=== PATIENT | female | born 1955 | race Two or more races ===

== ENCOUNTER 2023-12-24 14:00 | Inpatient (IN) | payer MEDICARE ==
[~2023-12-24] VITALS: Ht 157.5 cm; Wt 49.4 kg
[2023-12-24] VITALS (26 sets, daily range): BP systolic 74–147; BP diastolic 45–122; TEMP 95.8; O2SAT 93–100
[2023-12-24] MEDS: IV NS 0.9% 1,000 ML BAG IV ONE (14:24)
[2023-12-24 14:28] LABS: BASOPHILS # (AUTO) 0.1 K/uL (0.0-0.2); BASOPHILS % (AUTO) 0.5 % (0.0-2.0); EOSINOPHILS # (AUTO) 0.2 K/uL (0.0-0.7); EOSINOPHILS % (AUTO) 0.9 % (0.0-6.0); HEMATOCRIT 43 % (33-45); HEMOGLOBIN 12.4 g/dL (11.5-14.8); LYMPHOCYTES # (AUTO) 0.6 K/uL (0.8-4.8); LYMPHOCYTES % (AUTO) 2.4 % (20.0-44.0); MEAN CORPUSCULAR HEMOGLOBIN 30 PG (26.0-33.0); MEAN CORPUSCULAR HGB CONC 29 g/dl (31.0-36.0); MEAN CORPUSCULAR VOLUME 106 fL (82-100); MONOCYTES # (AUTO) 1.3 K/uL (0.1-1.30); MONOCYTES % (AUTO) 5.2 % (2.0-12.0); NEUTROPHILS # (AUTO) 22.3 K/uL (1.8-8.9); PLATELET COUNT (AUTO) 298 K/uL (150-450); RED BLOOD CELL COUNT(AUTO) 4.07 MIL/uL (4.0-5.2); RED CELL DISTRIBUTION WIDTH 15.9 % (11.5-15.0); WHITE BLOOD COUNT (AUTO) 24.5 K/uL (4.3-11.0)
[2023-12-24 14:31] LABS: ABG BASE EXCESS -28.4 mmol/L; ABG OXYGEN SATURATION 98.1 % (92.0-98.5); ABG PCO2 11.1 mmHg (35.0-45.0); ABG PH 6.935 (7.350-7.450); ABG PO2 157.5 mmHg (75.0-100.0); ABG TOTAL HEMOGLOBIN 13.6 G/dL (12.0-16.0); COHb 0.3 % (0.5-1.5); MetHb 0.2 % (0.0-1.5); O2Hb 97.6 % (94.0-97.0); SITE, ABG Left Radial
[2023-12-24 14:41] LABS: ALANINE AMINOTRANSFERASE 18 U/L (12-78); ALBUMIN 2.1 g/dL (3.4-5.0); ALKALINE PHOSPHATASE 172 U/L (46-116); ASPARTATE AMINOTRANSFERASE 18 U/L (15-37); BILIRUBIN,DIRECT 0.1 mg/dL (0.0-0.2); BILIRUBIN,TOTAL 0.5 mg/dL (0.2-1.0); CHLORIDE 90 mmol/L (98-107); CREATININE 1.4 mg/dL (0.6-1.3); POTASSIUM 4.5 mmol/L (3.5-5.1); SODIUM SERUM 125 mmol/L (136-145); TOTAL PROTEIN, SERUM 6.9 g/dL (6.4-8.2); UREA NITROGEN, BLOOD 55 mg/dL (7-18)
[2023-12-24 14:43] LABS: INR 0.98 (0.91-1.10); PARTIAL THROMBOPLASTIN TIME 33.9 SEC (24.3-34.3); PROTHROMBIN TIME 10.1 SECS (9.2-11.1)
[2023-12-24] MEDS ORDERED: INSULIN REGULAR, HUMAN 100 UNIT/ML 10 ML VIAL ONE (14:46)
[2023-12-24] MEDS ORDERED: SODIUM BICARBONATE SYR 50 MEQ/50 ML DISP.SYRIN ONE (14:48)
[2023-12-24] MEDS: Sodium Bicarbonate 50 MEQ in IV NS 0.9% 1,000 ML IV PRN (14:52)
[2023-12-24 14:53] LABS: LACTIC ACID 2.1 mmol/L (0.4-2.0)
[2023-12-24] MEDS: INSULIN REGULAR, HUMAN 100 UNIT/ML 10 ML VIAL IV ONE (14:53)
[2023-12-24 14:54] LABS: CARBON DIOXIDE 6 mmol/L (21-32); GLUCOSE 935 mg/dL (74-106)
[2023-12-24 15:13] LABS: MAGNESIUM 2.5 mg/dL (1.8-2.4); PHOSPHORUS 5.7 mg/dL (2.5-4.9)
[2023-12-24] MEDS: INSULIN REGULAR, HUMAN 100 UNITS in IV NS 0.9% 100 ML IV PRN (15:15)
[2023-12-24 15:27] LABS: APPEARANCE,URINE Cloudy (CLEAR); BILIRUBIN,URINE Negative (NEGATIVE); BLOOD, URINE Moderate Ery/uL (NEGATIVE); COLOR,URINE Other (YELLOW); KETONES,URINE 80 mg/dL (NEGATIVE); LEUKOCYTE ESTERASE ,URINE Trace (NEGATIVE); NITRITE, URINE Negative (NEGATIVE); PROTEIN,URINE 100 mg/dl (NEGATIVE); UGLUCOSE 500 MG/DL mg/dL (NEGATIVE); UROBILINOGEN,URINE 0.2 EU/dL (0.2)
[2023-12-24] MEDS ORDERED: Z GUARD REMEDY 4 OZ OINT TP PRN (15:30)
[2023-12-24] MEDS ORDERED: IV NS 0.9% 1,000 ML IV PRN (15:30)
[2023-12-24 15:50] LABS: RBC,URINE 21-50 /HPF (0-2); SQUAMOUS EPITHELIAL CELL,UR Moderate /HPF (None Seen)
[2023-12-24 15:51] LABS: ADD URINE CULTURE YES; BACTERIA,URINE Rare /HPF (None Seen); YEAST,URINE Moderate /HPF (None Seen)
[2023-12-24] MEDS ORDERED: IV PREMIX NS +20MEQ KCL 1 L IV PRN (16:00)
[2023-12-24] MEDS ORDERED: LORAZEPAM INJ 2 MG/ML VIAL ONE (16:54)
[2023-12-24] MEDS ORDERED: CEFTRIAXONE 1GM BAG (ER ONLY) 50 ML IV ONE (16:54)
[2023-12-24 16:57] LABS: MAGNESIUM 2.3 mg/dL (1.8-2.4); PHOSPHORUS 4.8 mg/dL (2.5-4.9)
[2023-12-24] MEDS: LORAZEPAM INJ 2 MG/ML VIAL IV ONE (17:10)
[2023-12-24] MEDS: CEFTRIAXONE 1GM BAG (ER ONLY) 1 GM/50 ML PIGGYBACK IV ONE (17:10)
[2023-12-24 18:51] LABS: PHOSPHORUS 4.6 mg/dL (2.5-4.9)
[2023-12-24] MEDS: BLOOD SUGAR DIAGNOSTIC 1 EACH STRIP IN SCH (19:10)
[2023-12-24] MEDS: INSULIN REGULAR, HUMAN 100 UNIT in IV NS 0.9% 99 ML IV PRN (19:17)
[2023-12-24] MEDS: Sodium Bicarbonate 150 MEQ in IV D5W 1,000 ML IV SCH (19:31)
[2023-12-24] MEDS: ENOXAPARIN SODIUM 30 MG/0.3 ML DISP.SYRIN SQ SCH (19:48)
[2023-12-24 20:36] LABS: CALCIUM, SERUM 9.3 mg/dL (8.5-10.1); CREATININE 1.4 mg/dL (0.6-1.3); POTASSIUM 3.1 mmol/L (3.5-5.1)
[2023-12-24] MEDS: POTASSIUM CL. PREMIX PERIPHER. 50 ML IV SCH (21:22)
[2023-12-24] MEDS: IV 1/2NS 1000 ML 1,000 ML IV SCH (21:50)
[2023-12-24 22:06] LABS: ANISOCYTOSIS 1+; BAND % (MANUAL) 9 % (0.0-5.0); LYMPHOCYTES % (MANUAL) 3 % (16-48); MONOCYTES % (MANUAL) 4 % (0-11.0); NEUTROPHILS % (MANUAL) 84 (42-76); PLATELET ESTIMATE ADEQUATE
[2023-12-24] MEDS ORDERED: FLUCONAZOLE IN NS 100 ML IV ONE (22:26)
[2023-12-24] MEDS: FLUCONAZOLE IN NS 100 MG in PREMIX 1 EA IV SCH (22:32)
[2023-12-24 22:57] LABS: ABG BASE EXCESS -14.1 mmol/L; ABG OXYGEN SATURATION 98.7 % (92.0-98.5); ABG PCO2 18.4 mmHg (35.0-45.0); ABG PH 7.332 (7.350-7.450); ABG PO2 151.9 mmHg (75.0-100.0); ABG TOTAL HEMOGLOBIN 12.4 G/dL (12.0-16.0); COHb 0.2 % (0.5-1.5); MetHb 0.3 % (0.0-1.5); O2Hb 98.2 % (94.0-97.0); SITE, ABG Left Radial; VENT MODE, BG Nasal Cannula
[2023-12-24] MEDS: SODIUM BICARBONATE SYR 50 MEQ/50 ML DISP.SYRIN IV ONE (23:54)
[2023-12-24] MEDS: NOREPINEPHRINE 8MG/250ML RTU 250 ML IV ONE (23:55)
[2023-12-25] VITALS (36 sets, daily range): BP systolic 83–148; BP diastolic 47–84; TEMP 97.5–99.2; O2SAT 92–100
[2023-12-25] MEDS ORDERED: NOREPINEPHRINE 8 MG in IV D5W 242 ML IV PRN
[2023-12-25 00:43] LABS: CREATININE 1.3 mg/dL (0.6-1.3)
[2023-12-25 00:45] LABS: POTASSIUM 2.7 mmol/L (3.5-5.1)
[2023-12-25] MEDS: POTASSIUM CL. PREMIX PERIPHER. 50 ML IV SCH ×2 (01:06→06:04)
[2023-12-25] MEDS ORDERED: IV PREMIX D5 1/2NS + KCL 1,000 ML IV ONE (02:21)
[2023-12-25] MEDS: Potassium Chloride 20 MEQ in IV D5/0.45 NACL 1,000 ML IV SCH (02:24)
[2023-12-25 05:00] LABS: BASOPHILS % (AUTO) 0.2 % (0.0-2.0); EOSINOPHILS # (AUTO) 0.1 K/uL (0.0-0.7); EOSINOPHILS % (AUTO) 1.6 % (0.0-6.0); HEMATOCRIT 31 % (33-45); HEMOGLOBIN 10.7 g/dL (11.5-14.8); LYMPHOCYTES # (AUTO) 0.3 K/uL (0.8-4.8); LYMPHOCYTES % (AUTO) 6.4 % (20.0-44.0); MEAN CORPUSCULAR HEMOGLOBIN 32 PG (26.0-33.0); MEAN CORPUSCULAR HGB CONC 35 g/dl (31.0-36.0); MEAN CORPUSCULAR VOLUME 92 fL (82-100); MONOCYTES # (AUTO) 0.2 K/uL (0.1-1.30); MONOCYTES % (AUTO) 3.1 % (2.0-12.0); NEUTROPHILS # (AUTO) 4.4 K/uL (1.8-8.9); NEUTROPHILS % (AUTO) 88.7 % (43.0-81.0); PLATELET COUNT (AUTO) 162 K/uL (150-450); RED CELL DISTRIBUTION WIDTH 13.7 % (11.5-15.0); WHITE BLOOD COUNT (AUTO) 4.9 K/uL (4.3-11.0)
[2023-12-25 05:21] LABS: CALCIUM, SERUM 8.8 mg/dL (8.5-10.1); CREATININE 1.3 mg/dL (0.6-1.3); MAGNESIUM 1.7 mg/dL (1.8-2.4); PHOSPHORUS 1.1 mg/dL (2.5-4.9); POTASSIUM 3.7 mmol/L (3.5-5.1)
[2023-12-25] MEDS: POTASSIUM PHOSPHATE MM 15 MMOL in IV NS 0.9% 250 ML IV ONE (08:28)
[2023-12-25] MEDS: PANTOPRAZOLE 40 MG VIAL IV SCH (08:36)
[2023-12-25] MEDS: Magnesium 1GM/D5W 100ML PREMIX 100 ML IV SCH (09:35)
[2023-12-25 10:15] LABS: CALCIUM, SERUM 8.8 mg/dL (8.5-10.1); CREATININE 1.3 mg/dL (0.6-1.3); MAGNESIUM 1.7 mg/dL (1.8-2.4); PHOSPHORUS 1.1 mg/dL (2.5-4.9)
[2023-12-25] MEDS ORDERED: INSULIN REGULAR, HUMAN 100 UNIT/ML 3 ML VIAL SQ PRN (11:30)
[2023-12-25] MEDS ORDERED: *INSULIN REGULAR(HUMULIN R)HUM 100 UNIT/ML VIAL SQ PRN (11:30)
[2023-12-25] MEDS ORDERED: DEXTROSE 50%-WATER 50 ML DISP.SYRIN IV PRN ×2 (11:30→12:00)
[2023-12-25] MEDS ORDERED: BLOOD SUGAR DIAGNOSTIC 1 EACH STRIP IN SCH (12:00)
[2023-12-25] MEDS: IV D5/0.45 NACL 1,000 ML IV PRN (12:04)
[2023-12-25] MEDS: BLOOD SUGAR DIAGNOSTIC 1 EACH STRIP IN SCH (12:10)
[2023-12-25] MEDS: INSULIN REGULAR, HUMAN 100 UNIT/ML 3 ML VIAL SQ PRN (12:31)
[2023-12-25] MEDS: CEFTRIAXONE 1 G in IV D5W 50 ML IV SCH (16:45)
[2023-12-25] MEDS: ONDANSETRON HCL/PF 4 MG/2 ML VIAL IVP PRN (17:58)
[2023-12-25] MEDS: IV NS 0.9% 250 ML IV PRN (20:51)
[2023-12-25] MEDS: FLUCONAZOLE IN NS 100 MG in PREMIX 1 EA IV SCH (21:09)
[2023-12-26] VITALS (20 sets, daily range): BP systolic 86–154; BP diastolic 54–78; TEMP 97.3–99.5; O2SAT 95–99
[2023-12-26 04:46] LABS: BASOPHILS % (AUTO) 0.1 % (0.0-2.0); EOSINOPHILS % (AUTO) 0.1 % (0.0-6.0); HEMATOCRIT 33 % (33-45); HEMOGLOBIN 11.3 g/dL (11.5-14.8); LYMPHOCYTES # (AUTO) 0.4 K/uL (0.8-4.8); LYMPHOCYTES % (AUTO) 7.7 % (20.0-44.0); MEAN CORPUSCULAR HEMOGLOBIN 31 PG (26.0-33.0); MEAN CORPUSCULAR HGB CONC 35 g/dl (31.0-36.0); MEAN CORPUSCULAR VOLUME 90 fL (82-100); MONOCYTES # (AUTO) 0.6 K/uL (0.1-1.30); MONOCYTES % (AUTO) 10.3 % (2.0-12.0); NEUTROPHILS # (AUTO) 4.6 K/uL (1.8-8.9); NEUTROPHILS % (AUTO) 81.8 % (43.0-81.0); PLATELET COUNT (AUTO) 94 K/uL (150-450); RED BLOOD CELL COUNT(AUTO) 3.59 MIL/uL (4.0-5.2); RED CELL DISTRIBUTION WIDTH 13.9 % (11.5-15.0); WHITE BLOOD COUNT (AUTO) 5.6 K/uL (4.3-11.0)
[2023-12-26 05:04] LABS: BILIRUBIN,TOTAL 0.4 mg/dL (0.2-1.0); CALCIUM, SERUM 8.2 mg/dL (8.5-10.1); CREATININE 0.8 mg/dL (0.6-1.3); PHOSPHORUS 1.3 mg/dL (2.5-4.9); TOTAL PROTEIN, SERUM 5.4 g/dL (6.4-8.2)
[2023-12-26 05:16] LABS: ALBUMIN 1.4 g/dL (3.4-5.0); POTASSIUM 2.5 mmol/L (3.5-5.1)
[2023-12-26 07:14] LABS: BASOPHILS % (MANUAL) 0 % (0.0-2.0); EOSINOPHILS % (MANUAL) 0 % (0-4); LYMPHOCYTES % (MANUAL) 4 % (16-48); MONOCYTES % (MANUAL) 10 % (0-11.0); NEUTROPHILS % (MANUAL) 86 (42-76)
[2023-12-26 07:15] LABS: ANISOCYTOSIS 1+; PLATELET ESTIMATE DECREASED
[2023-12-26] MEDS: POTASSIUM CHLORIDE 10 MEQ/50 ML PREMIXED IVPB FOR PERIPHERAL LINE IV SCH (07:38)
[2023-12-26] MEDS: Sodium Phosphate 30 MMOL in IV NS 0.9% 250 ML IV SCH (14:46)
[2023-12-26 17:27] LABS: CREATININE 0.8 mg/dL (0.6-1.3); POTASSIUM 3.6 mmol/L (3.5-5.1)
[2023-12-27] VITALS: BP 134/71; TEMP 99; O2SAT 96
[2023-12-27 04:00] VITALS: BP 128/73; TEMP 98.8; O2SAT 97
[2023-12-27 07:05] LABS: BASOPHILS % (AUTO) 0.1 % (0.0-2.0); EOSINOPHILS % (AUTO) 0.3 % (0.0-6.0); HEMATOCRIT 34 % (33-45); HEMOGLOBIN 11.4 g/dL (11.5-14.8); LYMPHOCYTES # (AUTO) 0.5 K/uL (0.8-4.8); LYMPHOCYTES % (AUTO) 13.6 % (20.0-44.0); MEAN CORPUSCULAR HEMOGLOBIN 31 PG (26.0-33.0); MEAN CORPUSCULAR HGB CONC 34 g/dl (31.0-36.0); MEAN CORPUSCULAR VOLUME 91 fL (82-100); MONOCYTES # (AUTO) 0.5 K/uL (0.1-1.30); MONOCYTES % (AUTO) 12.5 % (2.0-12.0); NEUTROPHILS # (AUTO) 2.9 K/uL (1.8-8.9); NEUTROPHILS % (AUTO) 73.5 % (43.0-81.0); PLATELET COUNT (AUTO) 68 K/uL (150-450); RED BLOOD CELL COUNT(AUTO) 3.69 MIL/uL (4.0-5.2)
[2023-12-27 07:10] LABS: BILIRUBIN,TOTAL 0.5 mg/dL (0.2-1.0); CREATININE 0.7 mg/dL (0.6-1.3); MAGNESIUM 1.7 mg/dL (1.8-2.4); PHOSPHORUS 2.3 mg/dL (2.5-4.9); TOTAL PROTEIN, SERUM 5.2 g/dL (6.4-8.2)
[2023-12-27 07:18] LABS: ALBUMIN 1.2 g/dL (3.4-5.0); POTASSIUM 2.8 mmol/L (3.5-5.1)
[2023-12-27 08:00] VITALS: BP 117/63; TEMP 98.4; O2SAT 96
[2023-12-27] MEDS: MAGNESIUM OXIDE 400 MG TABLET PO ONE (08:49)
[2023-12-27] MEDS: POTASSIUM CHLORIDE 20 MEQ TAB.PRT.SR PO ONE (08:49)
[2023-12-27] MEDS: POTASSIUM PHOSPHATE MM 7.5 MMOL in IV NS 0.9% 100 ML IV SCH (10:29)
[2023-12-27 10:56] LABS: ANISOCYTOSIS 1+; BASOPHILS % (MANUAL) 0 % (0.0-2.0); EOSINOPHILS % (MANUAL) 0 % (0-4); LYMPHOCYTES % (MANUAL) 12 % (16-48); MONOCYTES % (MANUAL) 9 % (0-11.0); NEUTROPHILS % (MANUAL) 79 (42-76); PLATELET ESTIMATE DECREASED
[2023-12-27 12:00] VITALS: BP 104/56; TEMP 98.4; O2SAT 94
[2023-12-27 20:00] VITALS: BP 127/57; TEMP 97.3; O2SAT 98
[2023-12-28 04:00] VITALS: BP 135/58; TEMP 98.2; O2SAT 97
[2023-12-28 07:04] LABS: BASOPHILS % (AUTO) 0.1 % (0.0-2.0); EOSINOPHILS % (AUTO) 0.4 % (0.0-6.0); HEMATOCRIT 31 % (33-45); LYMPHOCYTES # (AUTO) 0.8 K/uL (0.8-4.8); LYMPHOCYTES % (AUTO) 14.8 % (20.0-44.0); MEAN CORPUSCULAR HEMOGLOBIN 32 PG (26.0-33.0); MEAN CORPUSCULAR HGB CONC 35 g/dl (31.0-36.0); MEAN CORPUSCULAR VOLUME 90 fL (82-100); MONOCYTES # (AUTO) 0.7 K/uL (0.1-1.30); MONOCYTES % (AUTO) 12.4 % (2.0-12.0); NEUTROPHILS # (AUTO) 4.1 K/uL (1.8-8.9); NEUTROPHILS % (AUTO) 72.3 % (43.0-81.0); PLATELET COUNT (AUTO) 74 K/uL (150-450); RED BLOOD CELL COUNT(AUTO) 3.45 MIL/uL (4.0-5.2); RED CELL DISTRIBUTION WIDTH 13.5 % (11.5-15.0); WHITE BLOOD COUNT (AUTO) 5.7 K/uL (4.3-11.0)
[2023-12-28 07:26] LABS: BILIRUBIN,TOTAL 0.5 mg/dL (0.2-1.0); CALCIUM, SERUM 7.8 mg/dL (8.5-10.1); CREATININE 0.7 mg/dL (0.6-1.3); MAGNESIUM 1.7 mg/dL (1.8-2.4); PHOSPHORUS 2.7 mg/dL (2.5-4.9); POTASSIUM 2.9 mmol/L (3.5-5.1)
[2023-12-28 07:49] LABS: ALBUMIN 1.2 g/dL (3.4-5.0)
[2023-12-28 08:00] VITALS: BP 122/53; TEMP 97.9; O2SAT 98
[2023-12-28] MEDS ORDERED: POTASSIUM CHLORIDE 20 MEQ TAB.PRT.SR PO ONE (09:00)
[2023-12-28] MEDS: POTASSIUM CHLORIDE 20 MEQ TAB.PRT.SR PO ONE (09:09)
[2023-12-28] MEDS: MAGNESIUM OXIDE 400 MG TABLET PO ONE (09:09)
[2023-12-28 11:51] LABS: ANISOCYTOSIS 1+; BASOPHILS % (MANUAL) 0 % (0.0-2.0); EOSINOPHILS % (MANUAL) 0 % (0-4); LYMPHOCYTES % (MANUAL) 11 % (16-48); MONOCYTES % (MANUAL) 7 % (0-11.0); NEUTROPHILS % (MANUAL) 82 (42-76); PLATELET ESTIMATE DECREASED
[2023-12-28] MEDS: FLUCONAZOLE (100 MG) 100 MG TABLET PO SCH (13:18)
[2023-12-28 16:00] VITALS: BP 112/69; TEMP 97.5; O2SAT 95
[2023-12-28 20:00] VITALS: BP 117/60; TEMP 97.9; O2SAT 96
[2023-12-28] MEDS ORDERED: FLUCONAZOLE (100 MG) 100 MG TABLET PO SCH (22:00)
[2023-12-29 04:00] VITALS: BP 122/63; TEMP 98.1; O2SAT 96
[2023-12-29 08:00] VITALS: BP 112/61; TEMP 98.2; O2SAT 96
[2023-12-29] MEDS: PANTOPRAZOLE 40 MG TABLET.DR PO SCH (08:39)
[2023-12-29 16:00] VITALS: BP 104/73; TEMP 99.1; O2SAT 96
[2023-12-29 20:00] VITALS: BP 108/51; TEMP 99.3; O2SAT 96
[2023-12-29] MEDS: INSULIN GLARGINE, 100 UNIT/ML CARTRIDGE SQ SCH (23:22)
[2023-12-30 04:00] VITALS: BP 110/58; TEMP 98.4; O2SAT 96
[2023-12-30 08:00] VITALS: BP 108/65; TEMP 98.8; O2SAT 96
[2023-12-30] MEDS: POLYETHYLENE GLYCOL 3350 17 GM POWD.PACK PO ONE (14:12)
[2023-12-30] MEDS: SENNOSIDES/DOCUSATE SODIUM 1 TAB TABLET PO PRN (14:12)
[2023-12-30] MEDS ORDERED: DOCUSATE SODIUM 100 MG CAPSULE PO SCH (17:00)
== END 2023-12-30 16:12 | DRG 871 ==
LOC: ER 14:07 → ICU 16:32 → TELE1 12-26 14:56 → MEDSG1 12-27 11:34
PROC: 02HV33Z Insertion of Infusion Device into Superior Vena Cava, Percutaneous Approach (ICD-10-PCS; principal; 2023-12-24)
DX: B37.7 Candidal sepsis (principal); E11.10 Type 2 diabetes mellitus with ketoacidosis without coma; G93.41 Metabolic encephalopathy; I21.4 Non-ST elevation (NSTEMI) myocardial infarction; N17.9 Acute kidney failure, unspecified; R65.20 Severe sepsis without septic shock; B37.49 Other urogenital candidiasis; L90.5 Scar conditions and fibrosis of skin; E87.6 Hypokalemia; R11.2 Nausea with vomiting, unspecified; M89.8X9 Other specified disorders of bone, unspecified site; E83.42 Hypomagnesemia; E86.9 Volume depletion, unspecified; E87.8 Other disorders of electrolyte and fluid balance, not elsewhere classified; S30.0XXA Contusion of lower back and pelvis, initial encounter; X58.XXXA Exposure to other specified factors, initial encounter; Y92.89 Other specified places as the place of occurrence of the external cause; N28.9 Disorder of kidney and ureter, unspecified; I70.90 Unspecified atherosclerosis
CPT/HCPCS: 36415; 36569; 36600; 70450-TC; 71045-TC; 76770-TC; 80048-TC; 80053-TC; 80076-TC; 81001; 82803-TC; 82962-TC; 83605-TC; 83735-TC; 84100-TC; 84484-TC; 85025-TC; 85730-TC; 87040-TC; 87086-TC; 92526; 92611-TC; 97110-TC; 97112-TC; 97116-TC; 97530-TC; A4216; A4223; A9563; C9113; G0378; J0696; J1450; J1650; J1815; J2060; J2405; J3475; J3480; J3490; J7030; J7050; J7060; J7070

== ENCOUNTER 2024-06-15 04:20 | Inpatient (IN) | payer MEDICARE, OTHER ==
[~2024-06-15] VITALS: Ht 157.5 cm; Wt 45.5 kg
[2024-06-15] VITALS (27 sets, daily range): BP systolic 109–139; BP diastolic 52–76; TEMP 98–99.4; O2SAT 82–100
[2024-06-15] MEDS ORDERED: methylPREDNISolone SOD SUCC 125 MG/2ML VIAL ONE (04:36)
[2024-06-15] MEDS: methylPREDNISolone SOD SUCC 125 MG/2ML VIAL IV ONE (04:38)
[2024-06-15 04:49] LABS: BASOPHILS % (AUTO) 0.3 % (0.0-2.0); HEMATOCRIT 36 % (33-45); HEMOGLOBIN 12.6 g/dL (11.5-14.8); LYMPHOCYTES % (AUTO) 15.2 % (20.0-44.0); MEAN CORPUSCULAR HEMOGLOBIN 33 PG (26.0-33.0); MEAN CORPUSCULAR HGB CONC 35 g/dl (31.0-36.0); MEAN CORPUSCULAR VOLUME 96 fL (82-100); MONOCYTES # (AUTO) 0.4 K/uL (0.1-1.30); MONOCYTES % (AUTO) 5.3 % (2.0-12.0); NEUTROPHILS # (AUTO) 5.2 K/uL (1.8-8.9); NEUTROPHILS % (AUTO) 79.2 % (43.0-81.0); PLATELET COUNT (AUTO) 186 K/uL (150-450); RED BLOOD CELL COUNT(AUTO) 3.78 MIL/uL (4.0-5.2); RED CELL DISTRIBUTION WIDTH 13.6 % (11.5-15.0); WHITE BLOOD COUNT (AUTO) 6.6 K/uL (4.3-11.0)
[2024-06-15 04:59] LABS: PARTIAL THROMBOPLASTIN TIME 32.8 SEC (24.3-34.3); PROTHROMBIN TIME 10.6 SECS (9.2-11.1)
[2024-06-15] MEDS ORDERED: CEFTRIAXONE 1GM BAG (ER ONLY) 50 ML IV ONE (05:01)
[2024-06-15] MEDS ORDERED: AZITHROMYCIN 500 MG VIAL ONE (05:03)
[2024-06-15] MEDS ORDERED: ACETAMINOPHEN ES 500 MG TABLET ONE (05:03)
[2024-06-15] MEDS: ACETAMINOPHEN 325 MG TABLET PO ONE (05:06)
[2024-06-15] MEDS: CEFTRIAXONE 1GM BAG (ER ONLY) 1 GM/50 ML PIGGYBACK IV ONE (05:06)
[2024-06-15] MEDS ORDERED: IV NS 0.9% 250 ML IV ONE (05:11)
[2024-06-15] MEDS ORDERED: IOHEXOL-350 100 ML VIAL IV ONE (05:11)
[2024-06-15] MEDS ORDERED: CT SWABBABLE VALVE TRANS SET 1 EA INFUS.SET MC ONE (05:11)
[2024-06-15] MEDS: AZITHROMYCIN 500 MG in IV D5W 250 ML IV ONE (05:30)
[2024-06-15 05:31] LABS: ABG BASE EXCESS -5.3 mmol/L (-2.0-3.0); ABG PCO2 27.5 mmHg (32.0-45.0); ABG PH 7.425 (7.350-7.450); ABG PO2 44.4 mmHg (83.0-108.0); ABG TOTAL HEMOGLOBIN 12.9 G/dL (12.0-16.0); COHb 0.2 % (0.5-1.5); MetHb 0.2 % (0.0-1.5); O2Hb 81.7 % (94.0-97.0); SITE, ABG RIGHT RADIAL
[2024-06-15] MEDS ORDERED: SODIUM BICARBONATE SYR 50 MEQ/50 ML DISP.SYRIN ONE (05:33)
[2024-06-15] MEDS: SODIUM BICARBONATE SYR 50 MEQ/50 ML DISP.SYRIN IV ONE (05:34)
[2024-06-15] MEDS: IV NS 0.9% 1,000 ML BAG IV ONE (05:43)
[2024-06-15 05:56] LABS: CALCIUM, SERUM 9.5 mg/dL (8.5-10.1); CARBON DIOXIDE 21 mmol/L (21-32); CHLORIDE 103 mmol/L (98-107); CREATININE 0.7 mg/dL (0.6-1.3); GLUCOSE 141 mg/dL (74-106); POTASSIUM 3.4 mmol/L (3.5-5.1); SODIUM SERUM 139 mmol/L (136-145); UREA NITROGEN, BLOOD 32 mg/dL (7-18)
[2024-06-15 06:09] LABS: ALANINE AMINOTRANSFERASE 13 U/L (12-78); ALBUMIN 2.8 g/dL (3.4-5.0); ALKALINE PHOSPHATASE 42 U/L (46-116); ASPARTATE AMINOTRANSFERASE 8 U/L (15-37); BILIRUBIN,DIRECT 0.3 mg/dL (0.0-0.2); BILIRUBIN,TOTAL 1.3 mg/dL (0.2-1.0); NT-PRO BNP 440 pg/mL (0-125); TOTAL PROTEIN, SERUM 7.2 g/dL (6.4-8.2)
[2024-06-15] MEDS ORDERED: MAG HYDROX/AL HYDROX/SIMETH 30 ML UDC PO PRN (06:30)
[2024-06-15] MEDS ORDERED: MAGNESIUM HYDROXIDE 30 ML UDC PO PRN ×2 (06:30→09:00)
[2024-06-15] MEDS ORDERED: ONDANSETRON HCL/PF 4 MG/2 ML VIAL IVP PRN (06:30)
[2024-06-15] MEDS ORDERED: Z GUARD REMEDY 4 OZ OINT TP PRN (06:30)
[2024-06-15] MEDS ORDERED: ALBUTEROL FS 2.5 MG/3 ML VIAL.NEB NEB PRN (06:30)
[2024-06-15] MEDS ORDERED: ACETAMINOPHEN 325 MG TABLET PO PRN (06:30)
[2024-06-15 06:48] LABS: LACTIC ACID 1.4 mmol/L (0.4-2.0)
[2024-06-15] MEDS ORDERED: PANT40TA49 PO (07:45)
[2024-06-15] MEDS ORDERED: MULT-213 PO (07:45)
[2024-06-15] MEDS ORDERED: ASCO500T10 PO (07:45)
[2024-06-15] MEDS ORDERED: ENOX30DI5 SQ (07:45)
[2024-06-15] MEDS ORDERED: GABA-532 PO (07:45)
[2024-06-15] MEDS ORDERED: LIDO30AD10 TP (07:45)
[2024-06-15] MEDS ORDERED: INSU100V7 SQ (07:45)
[2024-06-15] MEDS ORDERED: *INS REG3 SQ (07:45)
[2024-06-15] MEDS ORDERED: MAGN400O6 PO (07:45)
[2024-06-15] MEDS ORDERED: BISA10SU11 RC (07:45)
[2024-06-15] MEDS ORDERED: DOCU100T2 PO (07:45)
[2024-06-15] MEDS ORDERED: ACET-868 PO (07:45)
[2024-06-15] MEDS ORDERED: ONDA4TAB5 PO (07:45)
[2024-06-15] MEDS ORDERED: NA P133E RC (07:45)
[2024-06-15] MEDS ORDERED: METF-440 PO (07:45)
[2024-06-15 08:22] LABS: APPEARANCE,URINE CLEAR (CLEAR); BILIRUBIN,URINE NEGATIVE (NEGATIVE); BLOOD, URINE NEGATIVE Ery/uL (NEGATIVE); COLOR,URINE YELLOW (YELLOW); KETONES,URINE 1+ mg/dL (NEGATIVE); LEUKOCYTE ESTERASE ,URINE NEGATIVE (NEGATIVE); NITRITE, URINE POSITIVE (NEGATIVE); PROTEIN,URINE 1+ mg/dl (NEGATIVE); UGLUCOSE NEGATIVE (NEGATIVE)
[2024-06-15 08:24] LABS: ADD URINE CULTURE YES; BACTERIA,URINE Few /HPF (None Seen); SQUAMOUS EPITHELIAL CELL,UR Rare /HPF (None Seen); WBC,URINE 21-50 /HPF (0-3)
[2024-06-15] MEDS ORDERED: DEXTROSE 50%-WATER 50 ML DISP.SYRIN IV PRN (09:00)
[2024-06-15] MEDS ORDERED: GABAPENTIN 100 MG CAPSULE PO PRN (09:00)
[2024-06-15] MEDS: VANCOMYCIN 1 GM in IV D5W 250 ML IV ONE (09:00)
[2024-06-15] MEDS ORDERED: NA PHOS,M-B/NA PHOS,DI-BA 1 EA ENEMA RC PRN (09:00)
[2024-06-15] MEDS ORDERED: dexaMETHasone SOD PHOSPHATE 10 MG/ML VIAL IV SCH (09:00)
[2024-06-15] MEDS ORDERED: PANTOPRAZOLE 40 MG TABLET.DR PO SCH (09:00)
[2024-06-15] MEDS ORDERED: BISACODYL SUPP (10 MG) 10 MG/SUPP.RECT SUPP.RECT RC PRN (09:00)
[2024-06-15 09:12] LABS: ABG BASE EXCESS -4.7 mmol/L (-2.0-3.0); ABG OXYGEN SATURATION 94.5 % (94.0-98.0); ABG PCO2 29.1 mmHg (32.0-45.0); ABG PH 7.423 (7.350-7.450); ABG PO2 75.2 mmHg (83.0-108.0); ABG TOTAL HEMOGLOBIN 11.7 G/dL (12.0-16.0); COHb 0.3 % (0.5-1.5); MetHb 0.1 % (0.0-1.5); O2Hb 94.1 % (94.0-97.0); SITE, ABG RIGHT RADIAL
[2024-06-15] MEDS ORDERED: POTASSIUM CHLORIDE 20 MEQ TAB.PRT.SR PO SCH (10:30)
[2024-06-15] MEDS: LIDOCAINE 5% (PATCH) 1 EA PATCH TP SCH (10:48)
[2024-06-15] MEDS: Z GUARD REMEDY 4 OZ OINT TP SCH (10:49)
[2024-06-15] MEDS: POTASSIUM CL. PREMIX PERIPHER. 50 ML IV SCH (10:49)
[2024-06-15] MEDS: PANTOPRAZOLE 40 MG VIAL IV SCH (10:50)
[2024-06-15] MEDS: PIPERACILLIN /TAZOBACTAM 3.375 G in IV D5W 50 ML IV SCH (11:17)
[2024-06-15] MEDS: ENOXAPARIN SODIUM 40 MG/0.4 ML DISP.SYRIN SQ SCH (11:18)
[2024-06-15] MEDS: BLOOD SUGAR DIAGNOSTIC 1 EACH STRIP VI SCH (11:19)
[2024-06-15] MEDS: DOCUSATE SODIUM 100 MG CAPSULE PO SCH (12:28)
[2024-06-15] MEDS ORDERED: methylPREDNISolone SOD SUCC 125 MG/2ML VIAL IV SCH (13:00)
[2024-06-15] MEDS: BISACODYL SUPP (10 MG) 10 MG/SUPP.RECT SUPP.RECT RC PRN (15:36)
[2024-06-15] MEDS: IV D5/ 0.9% NACL 1,000 ML IV PRN (16:40)
[2024-06-15] MEDS: REMDESIVIR (CHARGED) 200 MG, *LOADING DOSE 1 EA in IV NS 0.9% 210 ML IV ONE (16:54)
[2024-06-15] MEDS: INSULIN REGULAR, HUMAN 100 UNIT/ML 3 ML VIAL SQ PRN (17:17)
[2024-06-15] MEDS ORDERED: CEFTRIAXONE 1 G in IV D5W 50 ML IV SCH (21:00)
[2024-06-15] MEDS: VANCOMYCIN 500 MG in IV D5W 100ml IV SCH (21:15)
[2024-06-15] MEDS: *INSULIN REGULAR(HUMULIN R)HUM 100 UNIT/ML VIAL SQ PRN (21:15)
[2024-06-15] MEDS ORDERED: AZITHROMYCIN 500 MG in IV D5W 250 ML IV SCH (22:00)
[2024-06-16] VITALS (41 sets, daily range): BP systolic 85–120; BP diastolic 44–64; TEMP 98–98.8; O2SAT 87–100
[2024-06-16 05:02] LABS: CALCIUM, SERUM 8.2 mg/dL (8.5-10.1); CARBON DIOXIDE 28 mmol/L (21-32); CHLORIDE 109 mmol/L (98-107); CREATININE 0.6 mg/dL (0.6-1.3); GLUCOSE 175 mg/dL (74-106); MAGNESIUM 1.5 mg/dL (1.8-2.4); PHOSPHORUS 2.1 mg/dL (2.5-4.9); SODIUM SERUM 142 mmol/L (136-145); UREA NITROGEN, BLOOD 26 mg/dL (7-18)
[2024-06-16 05:13] LABS: INR 1.13 (0.91-1.10); PARTIAL THROMBOPLASTIN TIME 34.4 SEC (24.3-34.3); PROTHROMBIN TIME 11.9 SECS (9.2-11.1)
[2024-06-16 05:15] LABS: ALBUMIN 1.8 g/dL (3.4-5.0); BILIRUBIN,DIRECT 0.3 mg/dL (0.0-0.2); BILIRUBIN,TOTAL 0.8 mg/dL (0.2-1.0); TOTAL PROTEIN, SERUM 5.6 g/dL (6.4-8.2)
[2024-06-16] MEDS: POTASSIUM CL. PREMIX PERIPHER. 50 ML IV SCH (08:18)
[2024-06-16] MEDS: Magnesium 1GM/D5W 100ML PREMIX 100 ML IV SCH (08:30)
[2024-06-16 10:34] LABS: BASOPHILS % (AUTO) 0.2 % (0.0-2.0); HEMATOCRIT 34 % (33-45); HEMOGLOBIN 11.3 g/dL (11.5-14.8); LYMPHOCYTES # (AUTO) 0.5 K/uL (0.8-4.8); LYMPHOCYTES % (AUTO) 9.3 % (20.0-44.0); MEAN CORPUSCULAR HEMOGLOBIN 33 PG (26.0-33.0); MEAN CORPUSCULAR HGB CONC 34 g/dl (31.0-36.0); MEAN CORPUSCULAR VOLUME 97 fL (82-100); MONOCYTES # (AUTO) 0.3 K/uL (0.1-1.30); MONOCYTES % (AUTO) 6.6 % (2.0-12.0); NEUTROPHILS # (AUTO) 4.4 K/uL (1.8-8.9); NEUTROPHILS % (AUTO) 83.9 % (43.0-81.0); PLATELET COUNT (AUTO) 183 K/uL (150-450); RED BLOOD CELL COUNT(AUTO) 3.44 MIL/uL (4.0-5.2); RED CELL DISTRIBUTION WIDTH 14.3 % (11.5-15.0); WHITE BLOOD COUNT (AUTO) 5.3 K/uL (4.3-11.0)
[2024-06-16] MEDS: dexaMETHasone SOD PHOSPHATE 10 MG/ML VIAL IV SCH (11:08)
[2024-06-16 14:09] LABS: BAND % (MANUAL) 3 % (0.0-5.0); LYMPHOCYTES % (MANUAL) 14 % (16-48); MONOCYTES % (MANUAL) 4 % (0-11.0); NEUTROPHILS % (MANUAL) 79 (42-76)
[2024-06-16 14:10] LABS: ANISOCYTOSIS 1+; PLATELET ESTIMATE ADEQUATE
[2024-06-16 14:11] LABS: OVALOCYTES 1+
[2024-06-16] MEDS: REMDESIVIR (CHARGED) 100 MG in IV NS 0.9% 80 ML IV SCH (15:05)
[2024-06-16] MEDS: IV NS 0.9% 250 ML IV ONE (15:41)
[2024-06-16] MEDS: Sodium Phosphate 15 MMOL in IV NS 0.9% 245 ML IV SCH (16:01)
[2024-06-16] MEDS: VANCOMYCIN 750 MG in IV D5W 250 ML IV SCH (21:44)
[2024-06-17] VITALS (39 sets, daily range): BP systolic 100–128; BP diastolic 56–66; TEMP 96.7–98.6; O2SAT 91–99
[2024-06-17 04:51] LABS: BASOPHILS % (AUTO) 0.1 % (0.0-2.0); HEMATOCRIT 32 % (33-45); HEMOGLOBIN 11.4 g/dL (11.5-14.8); LYMPHOCYTES # (AUTO) 0.4 K/uL (0.8-4.8); LYMPHOCYTES % (AUTO) 6.8 % (20.0-44.0); MEAN CORPUSCULAR HEMOGLOBIN 34 PG (26.0-33.0); MEAN CORPUSCULAR HGB CONC 35 g/dl (31.0-36.0); MEAN CORPUSCULAR VOLUME 96 fL (82-100); MONOCYTES # (AUTO) 0.4 K/uL (0.1-1.30); MONOCYTES % (AUTO) 6.4 % (2.0-12.0); NEUTROPHILS # (AUTO) 5.5 K/uL (1.8-8.9); NEUTROPHILS % (AUTO) 86.7 % (43.0-81.0); PLATELET COUNT (AUTO) 216 K/uL (150-450); RED BLOOD CELL COUNT(AUTO) 3.37 MIL/uL (4.0-5.2); RED CELL DISTRIBUTION WIDTH 14.3 % (11.5-15.0); WHITE BLOOD COUNT (AUTO) 6.4 K/uL (4.3-11.0)
[2024-06-17 05:03] LABS: INR 1.06 (0.91-1.10); PARTIAL THROMBOPLASTIN TIME 32.2 SEC (24.3-34.3); PROTHROMBIN TIME 11.2 SECS (9.2-11.1)
[2024-06-17 05:19] LABS: ALANINE AMINOTRANSFERASE < 6 U/L (12-78); ALBUMIN 1.6 g/dL (3.4-5.0); ALKALINE PHOSPHATASE 31 U/L (46-116); ASPARTATE AMINOTRANSFERASE 9 U/L (15-37); BILIRUBIN,DIRECT 0.4 mg/dL (0.0-0.2); BILIRUBIN,TOTAL 0.8 mg/dL (0.2-1.0); CARBON DIOXIDE 24 mmol/L (21-32); CHLORIDE 111 mmol/L (98-107); CREATININE 0.6 mg/dL (0.6-1.3); GLUCOSE 318 mg/dL (74-106); POTASSIUM 3.2 mmol/L (3.5-5.1); SODIUM SERUM 142 mmol/L (136-145); TOTAL PROTEIN, SERUM 5.1 g/dL (6.4-8.2); UREA NITROGEN, BLOOD 24 mg/dL (7-18)
[2024-06-17] MEDS: POTASSIUM CL. PREMIX PERIPHER. 50 ML IV SCH (09:13)
[2024-06-17] MEDS: PIPERACILLIN /TAZOBACTAM 3.375 G in IV D5W 100 ML IV SCH (13:11)
[2024-06-18] VITALS (36 sets, daily range): BP systolic 110–134; BP diastolic 57–71; TEMP 97–98.6; O2SAT 94–99
[2024-06-18 04:45] LABS: BASOPHILS % (AUTO) 0.2 % (0.0-2.0); EOSINOPHILS % (AUTO) 0.1 % (0.0-6.0); HEMATOCRIT 34 % (33-45); HEMOGLOBIN 11.5 g/dL (11.5-14.8); LYMPHOCYTES # (AUTO) 0.8 K/uL (0.8-4.8); LYMPHOCYTES % (AUTO) 11.1 % (20.0-44.0); MEAN CORPUSCULAR HEMOGLOBIN 33 PG (26.0-33.0); MEAN CORPUSCULAR HGB CONC 34 g/dl (31.0-36.0); MEAN CORPUSCULAR VOLUME 96 fL (82-100); MONOCYTES # (AUTO) 0.5 K/uL (0.1-1.30); MONOCYTES % (AUTO) 6.9 % (2.0-12.0); NEUTROPHILS # (AUTO) 5.9 K/uL (1.8-8.9); NEUTROPHILS % (AUTO) 81.7 % (43.0-81.0); PLATELET COUNT (AUTO) 252 K/uL (150-450); RED CELL DISTRIBUTION WIDTH 14.3 % (11.5-15.0); WHITE BLOOD COUNT (AUTO) 7.2 K/uL (4.3-11.0)
[2024-06-18 05:00] LABS: ALBUMIN 1.5 g/dL (3.4-5.0); BILIRUBIN,DIRECT 0.3 mg/dL (0.0-0.2); BILIRUBIN,TOTAL 0.7 mg/dL (0.2-1.0); CREATININE 0.6 mg/dL (0.6-1.3)
[2024-06-18 05:12] LABS: INR 1.04 (0.91-1.10); PARTIAL THROMBOPLASTIN TIME 30.2 SEC (24.3-34.3)
[2024-06-18 05:13] LABS: POTASSIUM 3.6 mmol/L (3.5-5.1)
[2024-06-18 05:48] LABS: ABG BASE EXCESS -4.1 mmol/L (-2.0-3.0); ABG OXYGEN SATURATION 92.1 % (94.0-98.0); ABG PCO2 26.3 mmHg (32.0-45.0); ABG PH 7.461 (7.350-7.450); COHb 0.3 % (0.5-1.5); MetHb 0.3 % (0.0-1.5); O2Hb 91.5 % (94.0-97.0); SITE, ABG RIGHT BRACHIAL
[2024-06-18] MEDS ORDERED: GABAPENTIN 100 MG CAPSULE GT PRN (06:46)
[2024-06-18] MEDS ORDERED: MAG HYDROX/AL HYDROX/SIMETH 30 ML UDC GT PRN (06:46)
[2024-06-18] MEDS ORDERED: MAGNESIUM HYDROXIDE 30 ML UDC GT PRN (06:46)
[2024-06-18] MEDS ORDERED: ACETAMINOPHEN 650 MG/20.3 ML UDC GT PRN (07:00)
[2024-06-18] MEDS: DOCUSATE SODIUM LIQ 100 MG/10 ML UDC GT SCH (08:44)
[2024-06-18] MEDS: PANTOPRAZOLE 40 MG/PACK PACK GT SCH (08:44)
[2024-06-18] MEDS: GLUCERNA 1.2 1,000 ML BOTTLE NG PRN (09:52)
[2024-06-18] MEDS: VANCOMYCIN HCL 1.25 GM in IV D5W 250 ML IV SCH (21:00)
[2024-06-19] VITALS (43 sets, daily range): BP systolic 106–136; BP diastolic 53–71; TEMP 98–98.7; O2SAT 92–98
[2024-06-19 05:39] LABS: BASOPHILS % (AUTO) 0.1 % (0.0-2.0); EOSINOPHILS % (AUTO) 0.5 % (0.0-6.0); HEMATOCRIT 34 % (33-45); HEMOGLOBIN 11.8 g/dL (11.5-14.8); LYMPHOCYTES # (AUTO) 0.8 K/uL (0.8-4.8); LYMPHOCYTES % (AUTO) 11.8 % (20.0-44.0); MEAN CORPUSCULAR HEMOGLOBIN 33 PG (26.0-33.0); MEAN CORPUSCULAR HGB CONC 34 g/dl (31.0-36.0); MEAN CORPUSCULAR VOLUME 96 fL (82-100); MONOCYTES # (AUTO) 0.7 K/uL (0.1-1.30); MONOCYTES % (AUTO) 9.7 % (2.0-12.0); NEUTROPHILS # (AUTO) 5.6 K/uL (1.8-8.9); NEUTROPHILS % (AUTO) 77.9 % (43.0-81.0); PLATELET COUNT (AUTO) 256 K/uL (150-450); RED BLOOD CELL COUNT(AUTO) 3.59 MIL/uL (4.0-5.2); RED CELL DISTRIBUTION WIDTH 13.9 % (11.5-15.0); WHITE BLOOD COUNT (AUTO) 7.1 K/uL (4.3-11.0)
[2024-06-19 05:51] LABS: INR 1.06 (0.91-1.10); PARTIAL THROMBOPLASTIN TIME 31.6 SEC (24.3-34.3); PROTHROMBIN TIME 11.2 SECS (9.2-11.1)
[2024-06-19 05:59] LABS: BILIRUBIN,DIRECT 0.3 mg/dL (0.0-0.2); BILIRUBIN,TOTAL 0.7 mg/dL (0.2-1.0); CALCIUM, SERUM 7.6 mg/dL (8.5-10.1); CREATININE 0.5 mg/dL (0.6-1.3); POTASSIUM 3.4 mmol/L (3.5-5.1); TOTAL PROTEIN, SERUM 4.8 g/dL (6.4-8.2)
[2024-06-19 06:00] LABS: ALBUMIN 1.4 g/dL (3.4-5.0)
[2024-06-19 06:47] LABS: EOSINOPHILS % (MANUAL) 2 % (0-4); LYMPHOCYTES % (MANUAL) 23 % (16-48); MONOCYTES % (MANUAL) 6 % (0-11.0); NEUTROPHILS % (MANUAL) 69 (42-76)
[2024-06-19 06:48] LABS: ANISOCYTOSIS 1+; OVALOCYTES 1+; PLATELET ESTIMATE ADEQUATE
[2024-06-19] MEDS: IV NS 0.9% 1,000 ML IV SCH (08:28)
[2024-06-19] MEDS: POTASSIUM CL. PREMIX PERIPHER. 50 ML IV SCH (09:16)
[2024-06-19] MEDS: IV NS 0.9% 1,000 ML IV PRN (19:41)
[2024-06-20] VITALS (31 sets, daily range): BP systolic 106–155; BP diastolic 53–70; TEMP 98.3–98.9; O2SAT 92–100
[2024-06-20 04:32] LABS: BASOPHILS % (AUTO) 0.2 % (0.0-2.0); EOSINOPHILS % (AUTO) 0.4 % (0.0-6.0); HEMATOCRIT 31 % (33-45); HEMOGLOBIN 10.8 g/dL (11.5-14.8); LYMPHOCYTES # (AUTO) 0.9 K/uL (0.8-4.8); LYMPHOCYTES % (AUTO) 12.1 % (20.0-44.0); MEAN CORPUSCULAR HEMOGLOBIN 33 PG (26.0-33.0); MEAN CORPUSCULAR HGB CONC 35 g/dl (31.0-36.0); MEAN CORPUSCULAR VOLUME 95 fL (82-100); MONOCYTES # (AUTO) 0.6 K/uL (0.1-1.30); NEUTROPHILS # (AUTO) 6.2 K/uL (1.8-8.9); NEUTROPHILS % (AUTO) 79.3 % (43.0-81.0); PLATELET COUNT (AUTO) 245 K/uL (150-450); RED BLOOD CELL COUNT(AUTO) 3.28 MIL/uL (4.0-5.2); RED CELL DISTRIBUTION WIDTH 14.2 % (11.5-15.0); WHITE BLOOD COUNT (AUTO) 7.8 K/uL (4.3-11.0)
[2024-06-20 04:46] LABS: INR 1.07 (0.91-1.10); PARTIAL THROMBOPLASTIN TIME 31.4 SEC (24.3-34.3); PROTHROMBIN TIME 11.3 SECS (9.2-11.1)
[2024-06-20 04:53] LABS: BILIRUBIN,DIRECT 0.3 mg/dL (0.0-0.2); BILIRUBIN,TOTAL 0.5 mg/dL (0.2-1.0); CALCIUM, SERUM 6.7 mg/dL (8.5-10.1); CREATININE 0.5 mg/dL (0.6-1.3); POTASSIUM 3.5 mmol/L (3.5-5.1); TOTAL PROTEIN, SERUM 4.4 g/dL (6.4-8.2)
[2024-06-20 04:55] LABS: ALBUMIN 1.2 g/dL (3.4-5.0)
[2024-06-20] MEDS: INSULIN GLARGINE, 100 UNIT/ML CARTRIDGE SQ SCH (09:30)
[2024-06-20] MEDS: IV NS 0.9% 250 ML IV PRN (20:05)
[2024-06-21] VITALS (30 sets, daily range): BP systolic 114–151; BP diastolic 58–71; TEMP 97.7–98.7; O2SAT 96–99
[2024-06-21 04:56] LABS: CALCIUM, SERUM 7.9 mg/dL (8.5-10.1); CREATININE 0.5 mg/dL (0.6-1.3)
[2024-06-22] VITALS (16 sets, daily range): BP systolic 111–136; BP diastolic 56–71; TEMP 97.5–98.3; O2SAT 94–99
[2024-06-22 05:09] LABS: BASOPHILS % (AUTO) 0.2 % (0.0-2.0); EOSINOPHILS # (AUTO) 0.1 K/uL (0.0-0.7); EOSINOPHILS % (AUTO) 0.9 % (0.0-6.0); HEMATOCRIT 34 % (33-45); HEMOGLOBIN 12.1 g/dL (11.5-14.8); LYMPHOCYTES # (AUTO) 1.2 K/uL (0.8-4.8); LYMPHOCYTES % (AUTO) 15.3 % (20.0-44.0); MEAN CORPUSCULAR HEMOGLOBIN 33 PG (26.0-33.0); MEAN CORPUSCULAR HGB CONC 35 g/dl (31.0-36.0); MEAN CORPUSCULAR VOLUME 95 fL (82-100); MONOCYTES # (AUTO) 0.7 K/uL (0.1-1.30); MONOCYTES % (AUTO) 8.6 % (2.0-12.0); PLATELET COUNT (AUTO) 390 K/uL (150-450); RED BLOOD CELL COUNT(AUTO) 3.62 MIL/uL (4.0-5.2); RED CELL DISTRIBUTION WIDTH 13.6 % (11.5-15.0); WHITE BLOOD COUNT (AUTO) 7.9 K/uL (4.3-11.0)
[2024-06-22 05:22] LABS: CALCIUM, SERUM 8.1 mg/dL (8.5-10.1); CREATININE 0.5 mg/dL (0.6-1.3); PHOSPHORUS 3.2 mg/dL (2.5-4.9); POTASSIUM 4.3 mmol/L (3.5-5.1)
[2024-06-22] MEDS ORDERED: VANCOMYCIN HCL 1.25 GM in IV D5W 250 ML IV SCH (21:00)
[2024-06-22 21:01] LABS: URINE SODIUM, RANDOM 118 mmol/l (40-220)
[2024-06-22] MEDS: VANCOMYCIN HCL 1.25 GM in IV D5W 250 ML IV SCH (21:21)
[2024-06-23] VITALS: BP 120/60; TEMP 98.1; O2SAT 99
[2024-06-23 04:00] VITALS: BP 109/53; TEMP 98.1; O2SAT 95
[2024-06-23 07:59] LABS: CALCIUM, SERUM 8.5 mg/dL (8.5-10.1); CREATININE 0.5 mg/dL (0.6-1.3); POTASSIUM 5.3 mmol/L (3.5-5.1)
[2024-06-23 08:00] VITALS: BP 119/51; TEMP 98.1; O2SAT 97
[2024-06-23 08:19] LABS: THYROID STIMULATING HORMONE 2.2 uIU/mL (0.358-3.74); URIC ACID 1.4 mg/dL (2.6-7.2)
[2024-06-23 08:34] LABS: MAGNESIUM 2.7 mg/dL (1.8-2.4); PHOSPHORUS 3.9 mg/dL (2.5-4.9)
[2024-06-23 12:00] VITALS: BP 103/53; TEMP 97.9; O2SAT 92
[2024-06-23] MEDS: GLUCERNA 1.2 1,000 ML BOTTLE NG PRN (14:07)
[2024-06-23 15:23] LABS: OSMOLALITY,URINE 407 mOS/kg (340-1090)
[2024-06-23 15:39] LABS: CALCIUM, SERUM 8.2 mg/dL (8.5-10.1); CREATININE 0.6 mg/dL (0.6-1.3)
[2024-06-23 16:00] VITALS: BP 106/54; TEMP 97.9; O2SAT 93
[2024-06-23 20:00] VITALS: BP 109/58; TEMP 97.3; O2SAT 93
[2024-06-24] VITALS (7 sets, daily range): BP systolic 109–147; BP diastolic 54–80; TEMP 97.5–98.5; O2SAT 94–97
[2024-06-24] MEDS ORDERED: GLUCERNA 1.2 1,000 ML BOTTLE NG PRN (08:00)
[2024-06-24 08:36] LABS: CALCIUM, SERUM 8.7 mg/dL (8.5-10.1); CREATININE 0.6 mg/dL (0.6-1.3); POTASSIUM 4.1 mmol/L (3.5-5.1)
[2024-06-25] VITALS (22 sets, daily range): BP systolic 95–147; BP diastolic 55–75; TEMP 97.5–97.8; O2SAT 83–100
[2024-06-25 04:57] LABS: ABG OXYGEN SATURATION 81.1 % (94.0-98.0); ABG PCO2 40.7 mmHg (32.0-45.0); ABG PH 7.471 (7.350-7.450); ABG PO2 44.6 mmHg (83.0-108.0); ABG TOTAL HEMOGLOBIN 13.3 G/dL (12.0-16.0); COHb 0.1 % (0.5-1.5); MetHb 0.3 % (0.0-1.5); O2Hb 80.8 % (94.0-97.0); SITE, ABG RIGHT RADIAL
[2024-06-25] MEDS: IPRATROPIUM NEB FS 0.5 MG/2.5 ML AMPUL.NEB NEB PRN (06:46)
[2024-06-25] MEDS: ALBUTEROL FS 2.5 MG/3 ML VIAL.NEB NEB PRN (06:46)
[2024-06-25 08:36] LABS: BASOPHILS % (AUTO) 0.1 % (0.0-2.0); EOSINOPHILS % (AUTO) 0.1 % (0.0-6.0); HEMATOCRIT 41 % (33-45); HEMOGLOBIN 13.7 g/dL (11.5-14.8); LYMPHOCYTES # (AUTO) 1.3 K/uL (0.8-4.8); LYMPHOCYTES % (AUTO) 5.9 % (20.0-44.0); MEAN CORPUSCULAR HEMOGLOBIN 32 PG (26.0-33.0); MEAN CORPUSCULAR HGB CONC 33 g/dl (31.0-36.0); MEAN CORPUSCULAR VOLUME 96 fL (82-100); MONOCYTES % (AUTO) 4.4 % (2.0-12.0); NEUTROPHILS # (AUTO) 19.3 K/uL (1.8-8.9); NEUTROPHILS % (AUTO) 89.5 % (43.0-81.0); PLATELET COUNT (AUTO) 433 K/uL (150-450); RED BLOOD CELL COUNT(AUTO) 4.31 MIL/uL (4.0-5.2); RED CELL DISTRIBUTION WIDTH 13.9 % (11.5-15.0); WHITE BLOOD COUNT (AUTO) 21.5 K/uL (4.3-11.0)
[2024-06-25 08:43] LABS: CALCIUM, SERUM 8.7 mg/dL (8.5-10.1); CREATININE 0.6 mg/dL (0.6-1.3); POTASSIUM 4.8 mmol/L (3.5-5.1)
[2024-06-25 08:52] LABS: ALBUMIN 2.1 g/dL (3.4-5.0); BILIRUBIN,TOTAL 0.6 mg/dL (0.2-1.0); TOTAL PROTEIN, SERUM 6.3 g/dL (6.4-8.2)
[2024-06-25 19:39] LABS: ABG BASE EXCESS 4.6 mmol/L (-2.0-3.0); ABG OXYGEN SATURATION 97.7 % (94.0-98.0); ABG PH 7.495 (7.350-7.450); ABG PO2 103.6 mmHg (83.0-108.0); ABG TOTAL HEMOGLOBIN 12.6 G/dL (12.0-16.0); COHb 0.3 % (0.5-1.5); MetHb 0.3 % (0.0-1.5); O2Hb 97.1 % (94.0-97.0)
[2024-06-26] VITALS (14 sets, daily range): BP systolic 109–146; BP diastolic 58–64; TEMP 97.3–98.2; O2SAT 96–100
[2024-06-26 05:19] LABS: BASOPHILS % (AUTO) 0.2 % (0.0-2.0); EOSINOPHILS % (AUTO) 0.2 % (0.0-6.0); HEMATOCRIT 34 % (33-45); HEMOGLOBIN 11.6 g/dL (11.5-14.8); LYMPHOCYTES # (AUTO) 1.1 K/uL (0.8-4.8); LYMPHOCYTES % (AUTO) 11.2 % (20.0-44.0); MEAN CORPUSCULAR HEMOGLOBIN 33 PG (26.0-33.0); MEAN CORPUSCULAR HGB CONC 34 g/dl (31.0-36.0); MEAN CORPUSCULAR VOLUME 96 fL (82-100); MONOCYTES # (AUTO) 0.5 K/uL (0.1-1.30); MONOCYTES % (AUTO) 4.8 % (2.0-12.0); NEUTROPHILS # (AUTO) 8.3 K/uL (1.8-8.9); NEUTROPHILS % (AUTO) 83.6 % (43.0-81.0); PLATELET COUNT (AUTO) 384 K/uL (150-450); RED BLOOD CELL COUNT(AUTO) 3.54 MIL/uL (4.0-5.2); RED CELL DISTRIBUTION WIDTH 13.7 % (11.5-15.0); WHITE BLOOD COUNT (AUTO) 9.9 K/uL (4.3-11.0)
[2024-06-26 05:30] LABS: APPEARANCE,URINE CLOUDY (CLEAR); BILIRUBIN,URINE NEGATIVE (NEGATIVE); BLOOD, URINE 1+ Ery/uL (NEGATIVE); COLOR,URINE DARK YELLOW (YELLOW); KETONES,URINE NEGATIVE (NEGATIVE); LEUKOCYTE ESTERASE ,URINE 2+ (NEGATIVE); NITRITE, URINE NEGATIVE (NEGATIVE); PROTEIN,URINE TRACE mg/dl (NEGATIVE); UGLUCOSE NEGATIVE (NEGATIVE)
[2024-06-26 05:30] LABS: CALCIUM, SERUM 8.3 mg/dL (8.5-10.1); CREATININE 0.4 mg/dL (0.6-1.3); POTASSIUM 4.2 mmol/L (3.5-5.1)
[2024-06-26 05:47] LABS: ADD URINE CULTURE YES; BACTERIA,URINE Moderate /HPF (None Seen); SQUAMOUS EPITHELIAL CELL,UR Few /HPF (None Seen); WBC,URINE 21-50 /HPF (0-3)
[2024-06-26] MEDS: CEFEPIME 2 GM in IV D5W 100 ML IV SCH (09:25)
[2024-06-26] MEDS ORDERED: GLUCERNA 1.2 1,000 ML BOTTLE NG PRN (12:30)
[2024-06-26] MEDS: GLUCERNA 1.2 1,000 ML BOTTLE NG PRN (13:15)
[2024-06-27] VITALS: BP 141/63; TEMP 98.1; O2SAT 99
[2024-06-27 04:00] VITALS: BP 128/58; TEMP 98.1; O2SAT 99
[2024-06-27 08:00] VITALS: BP 97/68; TEMP 97.5; O2SAT 99
[2024-06-27 11:47] LABS: HEMATOCRIT 37 % (33-45); HEMOGLOBIN 12.3 g/dL (11.5-14.8); LYMPHOCYTES # (AUTO) 0.5 K/uL (0.8-4.8); LYMPHOCYTES % (AUTO) 7.5 % (20.0-44.0); MEAN CORPUSCULAR HEMOGLOBIN 32 PG (26.0-33.0); MEAN CORPUSCULAR HGB CONC 33 g/dl (31.0-36.0); MEAN CORPUSCULAR VOLUME 97 fL (82-100); MONOCYTES # (AUTO) 0.3 K/uL (0.1-1.30); MONOCYTES % (AUTO) 3.7 % (2.0-12.0); NEUTROPHILS # (AUTO) 6.1 K/uL (1.8-8.9); NEUTROPHILS % (AUTO) 88.8 % (43.0-81.0); PLATELET COUNT (AUTO) 359 K/uL (150-450); RED BLOOD CELL COUNT(AUTO) 3.79 MIL/uL (4.0-5.2); WHITE BLOOD COUNT (AUTO) 6.8 K/uL (4.3-11.0)
[2024-06-27 12:00] VITALS: BP 98/48; TEMP 97.7; O2SAT 96
[2024-06-27 12:01] LABS: CREATININE 0.4 mg/dL (0.6-1.3); MAGNESIUM 2.6 mg/dL (1.8-2.4); PHOSPHORUS 3.5 mg/dL (2.5-4.9); POTASSIUM 4.6 mmol/L (3.5-5.1)
[2024-06-27 13:04] LABS: EOSINOPHILS % (MANUAL) 1 % (0-4); LYMPHOCYTES % (MANUAL) 12 % (16-48); MONOCYTES % (MANUAL) 6 % (0-11.0); NEUTROPHILS % (MANUAL) 81 (42-76); PLATELET ESTIMATE ADEQUATE
[2024-06-27 13:06] LABS: ANISOCYTOSIS 1+
[2024-06-27] MEDS ORDERED: GLUCERNA 1.2 1,000 ML BOTTLE NG PRN (13:30)
[2024-06-27 16:00] VITALS: BP 101/58; TEMP 97.7; O2SAT 97
[2024-06-27 20:00] VITALS: BP 116/60; TEMP 98.8; O2SAT 97
[2024-06-28] VITALS (7 sets, daily range): BP systolic 90–129; BP diastolic 47–60; TEMP 98.1–98.6; O2SAT 95–99
[2024-06-28] MEDS: GLUCERNA 1.2 1,000 ML BOTTLE NG PRN (01:56)
[2024-06-28] MEDS: IV NS 0.9% 500 ML IV ONE (12:09)
[2024-06-29] VITALS: BP 139/61; TEMP 97.8; O2SAT 98
[2024-06-29 04:00] VITALS: BP 128/65; TEMP 98.1; O2SAT 98
[2024-06-29 08:00] VITALS: BP 113/56; TEMP 98.3; O2SAT 96
[2024-06-29 09:32] LABS: BASOPHILS % (AUTO) 0.7 % (0.0-2.0); EOSINOPHILS % (AUTO) 0.5 % (0.0-6.0); HEMATOCRIT 32 % (33-45); HEMOGLOBIN 11.1 g/dL (11.5-14.8); LYMPHOCYTES # (AUTO) 1.3 K/uL (0.8-4.8); LYMPHOCYTES % (AUTO) 18.8 % (20.0-44.0); MEAN CORPUSCULAR HEMOGLOBIN 33 PG (26.0-33.0); MEAN CORPUSCULAR HGB CONC 35 g/dl (31.0-36.0); MEAN CORPUSCULAR VOLUME 95 fL (82-100); MONOCYTES # (AUTO) 0.6 K/uL (0.1-1.30); MONOCYTES % (AUTO) 9.3 % (2.0-12.0); NEUTROPHILS # (AUTO) 4.8 K/uL (1.8-8.9); NEUTROPHILS % (AUTO) 70.7 % (43.0-81.0); PLATELET COUNT (AUTO) 305 K/uL (150-450); RED BLOOD CELL COUNT(AUTO) 3.35 MIL/uL (4.0-5.2); RED CELL DISTRIBUTION WIDTH 13.8 % (11.5-15.0); WHITE BLOOD COUNT (AUTO) 6.7 K/uL (4.3-11.0)
[2024-06-29 09:51] LABS: CALCIUM, SERUM 8.2 mg/dL (8.5-10.1); CREATININE 0.5 mg/dL (0.6-1.3); POTASSIUM 3.3 mmol/L (3.5-5.1)
[2024-06-29 12:00] VITALS: TEMP 98
[2024-06-29 16:00] VITALS: BP 111/61; TEMP 98.3; O2SAT 97
[2024-06-29 20:08] VITALS: BP 108/55; TEMP 98.2
[2024-06-30 01:34] VITALS: BP 108/55; TEMP 98.2; O2SAT 97
[2024-06-30 04:31] VITALS: BP 105/53; TEMP 98.5; O2SAT 96
[2024-06-30 05:52] VITALS: BP 105/53; TEMP 98.5; O2SAT 96
[2024-06-30 08:00] VITALS: BP 114/54; TEMP 98.2; O2SAT 98
[2024-06-30 12:00] VITALS: TEMP 98
[2024-06-30 16:00] VITALS: BP 101/59; TEMP 98.6; O2SAT 98
== END 2024-06-30 21:47 | DRG 871 ==
LOC: ER 04:28 → ICU 08:30 → TELE-TD 06-22 12:38 → TELE1 06-23 10:53 → MEDSG1 06-24 08:42 → ICU 06-25 05:09 → TELE-TD 06-26 10:40 → TELE1 06-27 09:33 → MEDSG1 06-28 16:34 → TELE1 06-28 20:38 → MEDSG1 06-29 10:04
PROVIDERS: ADMIT Internal Medicine; ATTEND Internal Medicine
PROC: XW033E5 Introduction of Remdesivir Anti-infective into Peripheral Vein, Percutaneous Approach, New Technology Group 5 (ICD-10-PCS; principal; 2024-06-15)
PROC: 3E0333Z Introduction of Anti-inflammatory into Peripheral Vein, Percutaneous Approach (ICD-10-PCS; 2024-06-16)
DX: A41.89 Other specified sepsis (principal); E43 Unspecified severe protein-calorie malnutrition; U07.1 COVID-19; J12.82 Pneumonia due to coronavirus disease 2019; G93.41 Metabolic encephalopathy; J96.01 Acute respiratory failure with hypoxia; E22.2 Syndrome of inappropriate secretion of antidiuretic hormone; J98.11 Atelectasis; E11.40 Type 2 diabetes mellitus with diabetic neuropathy, unspecified; E87.5 Hyperkalemia; E87.6 Hypokalemia; E88.09 Other disorders of plasma-protein metabolism, not elsewhere classified; R13.10 Dysphagia, unspecified; Z85.528 Personal history of other malignant neoplasm of kidney
CPT/HCPCS: 36415; 36600; 71045-TC; 80048-TC; 80053-TC; 80076-TC; 80202-TC; 81001; 82728-TC; 82803-TC; 82962-TC; 83605-TC; 83735-TC; 83880; 83935-TC; 84100-TC; 84300-TC; 84443-TC; 84484-TC; 84550-TC; 85025-TC; 85378-TC; 85610-TC; 85730-TC; 86140-TC; 87040-TC; 87081-TC; 87086-TC; 92526; 92611-TC; 93970-TC; 94762-TC; 94799-TC; 99082-TC; A4216; A4217; A4223; A9563; G0378; J0456; J0692; J0696; J1100; J1650; J1815; J2048; J2470; J2543; J2919; J3370; J3371; J3475; J3480; J3490; J7030; J7040; J7042; J7050; J7060; Q9967